=== PATIENT | female | born 1975 ===

== ENCOUNTER 2025-09-01 17:56 | Emergency (ER) | payer MEDICAID ==
[~2025-09-01] VITALS: Ht 167.6 cm; Wt 74.8 kg
[2025-09-01 18:04] VITALS: BP 110/68; TEMP 98.3; O2SAT 96
== END 2025-09-01 19:53 | disposition home or self-care (01) ==
LOC: ER 18:06
DX: S02.2XXA Fracture of nasal bones, initial encounter for closed fracture (principal); J45.909 Unspecified asthma, uncomplicated; W50.0XXA Accidental hit or strike by another person, initial encounter; Y93.89 Activity, other specified; Y92.89 Other specified places as the place of occurrence of the external cause; Y99.8 Other external cause status
CPT/HCPCS: 70160-TC